=== PATIENT | female | born 1945 | race Caucasian/White ===

== ENCOUNTER 2017-07-21 11:15 | Day surgery (SDC) | payer MEDICARE, OTHER ==
[2017-07-21] MEDS ORDERED: CEFAZOLIN 2 GM/50 ML (PMX) 50 ML IVPB (12:51)
[2017-07-21] MEDS ORDERED: LACTATED RINGER'S 1,000 ML IV* (13:00)
[2017-07-21] MEDS ORDERED: PROPOFOL 20 ML (16:26)
[2017-07-21] MEDS ORDERED: MIDAZOLAM 1 MG/ML 2 ML INJ ×3 (16:26→17:58)
[2017-07-21] MEDS ORDERED: FENTAnyl 50 MCG/ML VIAL ×2 (16:26→16:27)
[2017-07-21] MEDS ORDERED: LIDOCAINE 1% (MDV) 20 ML INJ (16:28)
[2017-07-21] MEDS ORDERED: DEXAMETHASONE 4 MG/ML 1 ML INJ (16:47)
[2017-07-21] MEDS ORDERED: ONDANSETRON 4 MG INJ (16:47)
[2017-07-21] MEDS ORDERED: FAMOTIDINE 20 MG INJ (16:47)
[2017-07-21] MEDS ORDERED: CEFAZOLIN 1 GM INJ (16:52)
[2017-07-21] MEDS ORDERED: LABETALOL HCL 20MG INJ (17:28)
[2017-07-21] MEDS: BUPIVACAINE 0.5% (SDV) 30 ML INJ (17:33)
[2017-07-21] MEDS ORDERED: SUGAMMADEX SODIUM 200 MG/2 ML VIAL IV (17:39)
[2017-07-21] MEDS ORDERED: HYDROmorphONE (0.2 MG/ML) 10ML SYG IV (18:00)
[2017-07-21] MEDS ORDERED: MEPERIDINE 25 MG INJ IV (18:00)
[2017-07-21] MEDS: MIDAZOLAM 1 MG/ML 2 ML INJ IV (18:13)
[2017-07-21] MEDS: HYDROmorphONE (0.2 MG/ML) 10ML SYG IV ×3 (18:19→19:00)
[2017-07-21] MEDS: ONDANSETRON 4 MG INJ IV (18:19)
[2017-07-21] MEDS: OXYCODONE/ACETAMINOPHEN (5/325) TAB PO (18:51)
[2017-07-21] MEDS: DIPHENHYDRAMINE 50 MG INJ IV (18:59)
== END 2017-07-21 20:31 | disposition home or self-care (01) ==
LOC: SDS 11:15
DX: T84.84XA Pain due to internal orthopedic prosthetic devices, implants and grafts, initial encounter (principal); Y79.3 Surgical instruments, materials and orthopedic devices (including sutures) associated with adverse incidents; G56.02 Carpal tunnel syndrome, left upper limb; M75.02 Adhesive capsulitis of left shoulder; M25.622 Stiffness of left elbow, not elsewhere classified
CPT/HCPCS: 20680; 71045; 73080-LT; 88300